=== PATIENT | female | born 1965 | race Caucasian/White ===

== ENCOUNTER 2024-08-18 04:58 | Observation (INO) | payer OTHER, SELFPAY ==
[2024-08-18] VITALS (27 sets, daily range): BP systolic 93–117; BP diastolic 55–73; PULSE 75–96; RESP 11–24; TEMP 36.2–36.6; O2SAT 82–98; BMI 21.4
--- NOTE | ~2024-08-18 | XR_ITS ---
XR chest 1V portable Ordering provider: Can Wild MD History: 59 years Female with . SHORTNESS OF BREATH X 2 DAYS. . Comparison: None. FINDINGS: MEDIASTINUM: The cardiac silhouette is not enlarged. LUNGS: No infiltrates, effusions or pneumothorax. OTHER: No free air under the diaphragm. IMPRESSION: No acute cardiopulmonary pathology. Reviewed, dictated and finalized at location A.
--- OUTSIDE RECORDS SUMMARY | 2024-08-18 05:00 | XMS_ITS | Clinical Summary ---
Author Organization [facility] Address [address] [place] [address] Care Team Providers Care Health Services Rn Name Role Phone Noe Hayes MD Primary Care Provider [phone] Allergies Active Allergy Reactions Criticality Noted Date Comments Cephalexin Rash Medium 10/02/2020 Penicillins Rash Medium 08/03/2018 Medications sertraline (ZOLOFT) 50 mg tablet Take 50 mg by mouth daily Active atorvastatin (LIPITOR) 20 mg tablet Take 20 mg by mouth daily Active cetirizine-pseud oephedrine ER (ZyrTEC-D) 5-120 mg per 12 hr tablet Take 1 tablet by mouth daily Active cyanocobalamin (Vitamin B-12) 500 mcg tabletIndication s:Prevention of Vitamin B12 Deficiency Take 500 mcg by mouth daily Active cholecalciferol, vitamin D3, (Vitamin D3) 1,000 unit tablet,chewable Take by mouth Active topiramate (TOPAMAX) 100 mg tablet Take 100 mg by mouth 2 (two) times a day Active rimegepant (Nurtec ODT) tablet,disintegr ating Take by mouth Active acetaminophen-as pirin-caffeine (EXCEDRIN MIGRAINE) 250-250-65 mg per tablet Take 1 tablet by mouth every 6 (six) hours as needed Active Active Problems Problem Noted Date Diagnosed Date Anxiety and depression 10/02/2020 Mixed hyperlipidemia 10/02/2020 S/P partial thyroidectomy 10/02/2020 Tobacco use disorder 10/02/2020 Tubular adenoma of colon 10/02/2020 Hyperthyroidism 08/03/2018 Surgical History Surgery Date Site/Laterality Comments THYROID LOBECTOMY Medical History Medical History Date Comments Tubular adenoma of colon 10/02/2020 Hyperthyroidism 08/03/2018 Mixed hyperlipidemia 10/02/2020 Anxiety and depression 10/02/2020 S/P partial thyroidectomy 10/02/2020 Tobacco use disorder 10/02/2020 Social History Tobacco Use Types Packs/Day Years Used Date Smoking Tobacco: Former Personal Safety Answer Date Recorded Getting School Help Needed Not on file 07/28 Comments Unknown Sex and Gender Information Value Date Recorded Sex Assigned at Not on file 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 Sex 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 Gender Identity Not on file Sexual Orientation Not on file Obstetrics History Last Filed Vital Signs Vital Sign Reading Time Taken Comments Blood Pressure 116/64 10/02/2020 12:01 PM CDT Pulse 96 10/02/2020 12:01 PM CDT Temperature 36.4 C (97.5 F) 10/02/2020 12:01 PM CDT Respiratory Rate - - Oxygen Saturation - - Inhaled Oxygen Concentration - - Weight 54 kg (119 lb) 10/02/2020 12:01 PM CDT Height 157.5 cm (5' 2 ) 10/02/2020 12:01 PM CDT Body Mass Index 21.77 10/02/2020 12:01 PM CDT Plan of Treatment Not on file Insurance COMMERCIAL GENERIC Care Teams Health Services Rn Relationship Specialty Start Date End Date Noe Hayes MD [address] [place] [address] [place] [address] PCP - General Family Medicine 08/26/20
--- OUTSIDE RECORDS SUMMARY | 2024-08-18 05:00 | XMS_ITS | Encounter Summary ---
Author Organization [facility] Address [address] [place] [address] Care Team Providers Care Retail Support Specialist Name Role Phone Noe Hayes MD Primary Care Provider [phone] Encounter Details Date Type Department Care Team (Late st Contact Info) Description 10/20/2018 Abstract SFL CONVERSION [address] [place] [address] , Generic Conversion, Social History Tobacco Use Types Packs/Day Years Used Date Smoking Tobacco: Every Day Cigarettes Smokeless Tobacco: Never Alcohol Use Standard Drinks/Week Comments No 0 (1 standard drink = 0.6 oz pur e alcohol) AUDIT-C Answer Date Recorded Frequency of Alcohol Consumption Never 08/03/2018 Average Number of Drinks Not on file 019 Frequency of Binge Drinking Not on file 07/14 Comments Unknown Sex and Gender Information Value Date Recorded Sex Assigned at Female 08/03/2018 12:35 PM CDT Legal Sex Female 10:21 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 Gender Identity Female 08/03/2018 12:35 PM CDT Sexual Orientation Not on file documented as of this encounter Plan of Treatment Not on file documented as of this encounter Visit Diagnoses Not on filedocumented in this encounter Additional Health Concerns Infection Onset Date Last Indicated Resolved Time COVID-19 Rule Out 01/01/2022 01/01/2022 01/01/2022 7:31 PM CDT documented as of this encounter Care Teams Retail Support Specialist Relationship Specialty Start Date End Date Noe Hayes MD [address] [place] [id number] PCP - General FAMILY PRACTICE 08/01/18 documented as of this encounter
--- OUTSIDE RECORDS SUMMARY | 2024-08-18 05:00 | XMS_ITS | Referral Summary ---
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
--- OUTSIDE RECORDS SUMMARY | 2024-08-18 05:00 | XMS_ITS | Clinical Summary ---
Author Organization [facility] Address Count includes the [facility] [place] [address] Care Team Providers Care Material Assembler Name Role Phone Noe Hayes MD Primary Care Provider [phone] Allergies Active Allergy Reactions Criticality Noted Date Comments Codeine Headache 08/03/2018 Nsaids Other (see comment) 08/03/2018 Hx of ulcer confirmed by bx. Penicillins Rash Medium 08/03/2018 Bupropion Hallucinations 08/03/2018 Medications sertraline 50 MG tablet Take 50 mg by mouth daily. Active lorazepam 1 MG tablet Take 0.5-1 tablets by mouth as needed. Active atorvastatin (LIPITOR) 20 MG tablet Take 20 mg by mouth nightly at bedtime. Active cetirizine (ZYRTEC) 5 MG tablet Take 5 mg by mouth as needed for Allergies. Active rimegepant (NURTEC) 75 MG disintegrating tablet Take 75 mg by mouth daily as needed for Migraine. Max of 3 tablets (75 mg) in a 24 hour period. Active Cyanocobalamin (B-12) 1000 MCG Cap Take 1,000 mcg by mouth daily. Active vitamin D3, cholecalciferol, 1000 UNIT Tab tablet Take 1 tablet by mouth daily. Active aspirin-acetaminoph en-caffeine (EXCEDRIN MIGRAINE) 250-250-65 MG tablet Take 1 tablet by mouth every 6 (six) hours as needed. Active Active Problems Problem Noted Date Diagnosed Date S/P excision of lipoma 08/17/2018 Encounter for postoperative care 08/17/2018 Hyperthyroidism 08/03/2018 Thyroid mass 08/03/2018 Overview (08/03/2018): Hx of partial thyroidectomy. Now with enlarging right thyroid. Referred to Dr. Garcia by PCP Insomnia, persistent 08/03/2018 Depression, endogenous ([facility]) 019 Overview (08/03/2018): She is not enjoying life and requests Sertraline, which her mother takes with good success. She denies suicidal ideation and refuses talk therapy per PCP Tobacco use disorder Elevated vitamin B12 level Acute loss of vision, right Tubular adenoma of colon Hand arthritis Anxiety state Esophageal reflux Mixed hyperlipidemia Thyroid nodule Benign positional vertigo, right Breast mass Anxiety and depression S/P partial thyroidectomy Resolved Problems Problem Noted Date Diagnosed Date Resolved Date Lipoma of right shoulder 08/06/201809/2018 Encounters Date Type Department Care Team Description 05/29/2024 2:15 PM SORTING GRAPPLE OPERATOR - 05/29/2024 11:59 PM SORTING GRAPPLE OPERATOR Hospital Encounter [facility] [address] [place] [address] Ameena Pena MD Discharge Disposition: Home or Self Care (Routine Discharge) 05/29/2024 Orders Only [facility] [address] [place] [address] Ameena Pena MD 05/29/2024 Orders Only [facility] [address] [place] [address] Ameena Pena MD 05/29/2024 Travel from Last 3 Months Family History Medical History Relation Comments Hypertension Father Colon Cancer Maternal Aunt Breast Cancer Maternal Grandmother Colon Cancer Maternal Uncle Breast Cancer Paternal Aunt Breast Cancer Paternal Grandmother Relation Status Comments Father Alive Maternal Aunt Maternal Grandmother Maternal Uncle Mother Alive Paternal Aunt Paternal Grandmother Social History Tobacco Use Types Packs/Day Years Used Date Smoking Tobacco: Former Cigarettes Smokeless Tobacco: Never Alcohol Use Standard Drinks/Week Comments No 0 (1 standard drink = 0.6 oz pur e alcohol) AUDIT-C Answer Date Recorded Frequency of Alcohol Consumption Never 08/03/2018 Average Number of Drinks Not on file 019 Frequency of Binge Drinking Not on file 07/14 Comments No Sex and Gender Information Value Date Recorded Sex Assigned at Female 08/03/2018 12:35 PM CDT Legal Sex Female 10:21 PM SORTING GRAPPLE OPERATOR Gender Identity Female 08/03/2018 12:35 PM CDT Sexual Orientation Not on file Last Filed Vital Signs Vital Sign Reading Time Taken Comments Blood Pressure 127/61 01/04/2022 12:53 PM CDT Pulse 59 01/04/2022 12:53 PM CDT Temperature 35.8 C (96.5 F) 01/04/2022 12:53 PM CDT Respiratory Rate 16 01/04/2022 12:53 PM CDT Oxygen Saturation 99% 01/04/2022 12:53 PM CDT Inhaled Oxygen Concentration - - Weight 49.9 kg (110 lb) 12/28/2021 10:41 AM CDT Height 157.5 cm (5' 2 ) 12/28/2021 10:41 AM CDT Body Mass Index 20.12 12/28/2021 10:41 AM CDT Plan of Treatment Health Maintenance Due Date Last Done Comments Annual Physical 1968 Pneumococcal Vaccine: Pediatrics (0 to 5 Years) and At-Risk Patients (6 to 64 Years) (1 of 2 - PCV) 1971 Hepatitis C 1983 DTaP, Tdap and Td Vaccines ( 1 - Tdap) 1984 Mammogram Screening 2005 Zoster Vaccines (2 of 2) 10/28/2021 09/02/2021 COVID-19 Vaccine (3 - 2023-2 5 season) 2024 12/02/2020, 11/11/2020 Influenza Adult (#1) 2024 03/12/2019 Colorectal Cancer Screening Colonoscopy (10 Years) 01/05/2032 01/04/2022, 01/04/2022 Meningococcal B Vaccine Aged Out No l onger eligible based on patient's age to complete this topic Meningococcal Vaccine Aged Out No tiffanie mary eligible based on patient's age to complete this topic RSV Immunizations Under 20 Months Aged Out No longer eligible b ased on patient's age to complete this topic Procedures Procedure Name Priority Date/Time Associated Diagnosis Comments [id number], TOTAL Routine 05/29/2024 2:37 PM SORTING GRAPPLE OPERATOR Emphysema lung (CMS/HCC HHS/HCC) SOB (shortness of breath) COLONOSCOPY 01/04/2022 6:50 AM CDT from Last 3 Months or Most Recently Relevant to Health Maintenance Results * [id number] TOTAL (05/29/2024 2:37 PM SORTING GRAPPLE OPERATOR) [id number] QUANT 180 83 - 199 mg/dL 06/03/2024 8:20 PM SORTING GRAPPLE OPERATOR [employer] MONIKA BRADLEY Comment: Test Performed by [email or web address], [place] [employer] [facility], [address] [place] [address] Cody Palacios M.D., Ph.D., Director of Laboratories , [facility] [id number] 05/29/2024 2:37 PM SORTING GRAPPLE OPERATOR Ameena Pena MD LABORATORY Final Result [employer] [facility] [address] [place] [address], [place] [phone] * Colonoscopy (01/04/2022 6:50 AM CDT) Samson Gambino MD GI PROCEDURE ORDERABLES Final Result from Last 3 Months or Most Recently Relevant to Health Maintenance Insurance GENERIC - COMMERCIAL Care Teams Material Assembler Relationship Specialty Start Date End Date Noe Hayes MD [address] [facility] [place] [address] PCP - General FAMILY PRACTICE 08/01/18
--- NOTE | 2024-08-18 05:08 | ED.SOB ---
HPI - SOB/Dyspnea General Chief Complaint: Shortness of Breath/Dyspnea Stated Complaint: dyspnea Time Seen by Provider: 08/18/24 05:08 Source: patient Mode of arrival: ambulatory Limitations: no limitations History of Present Illness HPI Narrative: 59-year-old female, smoker with a history of COPD, hypothyroidism status post thyroidectomy presents to the ED with 2 day history of -- cough with mucoid expectoration -- shortness of breath which is worse with exertion. patient 82% on room air on presentation. Subsequently the patient was placed on 2 L of O2. No fever or chills. No chest pain. No nausea/ vomiting /abdominal pain / diarrhea no upper respiratory tract symptoms. MD elicited complaint: shortness of breath and cough Pertinent past history: COPD Onset (ago): day(s) ( Two days) Context: occurred during exertion Timing: intermittent Severity: moderate Exacerbating factors: movement Relieving factors: rest Known history of: COPD Associated symptoms: cough Treatment prior to arrival: none Related Data Home oxygen amount: none Home Medications ?Medication ?Instructions ?Recorded ?Confirmed ?Last Taken ?Type rosuvastatin 40 mg tablet 40 mg PO DAILY 08/18/24 08/18/24 Unknown History sertraline 50 mg tablet 50 mg PO DAILY 08/18/24 08/18/24 Unknown History Allergies Allergy/AdvReac Type Severity Reaction Status Date / Time acetaminophen Allergy RASH Verified 08/18/24 05:25 iohexol (From contrast - CT, Allergy Rash Verified 08/18/24 05:25 X-RAY) Penicillins Allergy N/V Verified 08/18/24 05:25 prednisone Allergy SKIN Verified 08/18/24 05:25 IRRITATION HYDROCODONE BIT Allergy RASH Uncoded 05/24/13 06:45 Review of Systems Review of Systems: All systems reviewed & are unremarkable except as noted in HPI and below Constitutional: Constitutional: Reports as per HPI and Reports no additional constitutional complaints Eyes: Eyes: Reports as per HPI and Reports no additional eye complaints ENT: Reports system reviewed and no additional complaints, except as documented and Reports as per HPI Cardiovascular: Cardiovascular: Reports as per HPI and Reports no additional cardiovascular complaints Respiratory: Respiratory: Reports as per HPI, Reports no additional respiratory complaints, Reports cough and Reports dyspnea Gastrointestinal: Gastrointestinal: Reports as per HPI and Reports no additional gastrointestinal complaints Genitourinary: Genitourinary: Reports no additional female genitourinary complaints and Reports as per HPI Musculoskeletal: Musculoskeletal: Reports no additional musculoskeletal complaints and Reports as per HPI Integumentary/Breasts: Skin/Breast: Reports system reviewed and no additional complaints, except as docu and Reports as per HPI Neurologic: Reports system reviewed and no additional complaints, except as documented and Reports as per HPI Psychiatric: Psychiatric: Reports no additional psychiatric complaints and Reports as per HPI Endocrine: Endocrine: Reports no additional endocrine complaints and Reports as per HPI Hematologic/Lymphatic: Hematologic/Lymphatic: Reports no additional hematologic/lymphatic complaints and Reports as per HPI Allergic/Immunologic: Allergic/Immunologic: Reports no additional allergic/immunologic complaints and Reports as per HPI [facility] Past Medical History Medical History (Updated 08/18/24 @ 06:54 by Can Wild MD) COPD exacerbation Family History Family History (Updated 12/11/15 @ 23:19 by DOCTOR UNKNOWN) Sibling Malignant neoplasm of prostate Grandparent Family history of malignant neoplasm of breast Other Carcinoma of colon Social History Social History (Updated 08/18/24 @ 05:22 by Can Wild MD) Social History: ex-smoker Smoking status: Former smoker Second hand tobacco smoke exposure: No Alcohol intake: current Exam Narrative: afebrile. Oxygen saturation of 91% on 2 L of O2. Const: General: no acute distress Orientation/consciousness: patient oriented x3 Limitations: no limitations HENMT: Head: normal to inspection Ears: external ears normal Face/Nose/Sinus: Normal external nose present Face and sinus: normal facial exam Mouth: Yes Normal oral and palatal mucosa present Throat: posterior oropharynx normal Eyes: Conjunctivae: conjunctivae normal Pupils: Equal, round and reactive pupils present EOM: EOMs intact bilaterally Direct Ophthalmoscopy: no photophobia Neck: Neck: normal visual inspection, no lymphadenopathy and no meningeal signs Chest: Chest palpation & inspection: normal inspection of the chest Resp: Auscultation: wheezes and diminished lung sounds Cardio: Rate: regular rate Rhythm: regular rhythm GI: GI Palp: Yes Soft to palpation Auscultation: normal bowel sounds Other: No tenderness/ rigidity /rebound. : General: Yes no CVA tenderness Back/Spine/Pelvis: Back: no CVA tenderness Skin: General skin exam: normal color Rashes: no rashes Wounds: no wounds Neuro: General: patient oriented x3, moves all extremities, no meningeal signs, no focal motor deficits and CN's II-XI intact bilaterally Cranial nerves: Yes Nystagmus not present Speech: normal speech Extrem: General: normal to inspection and no clubbing, cyanosis or edema Psych: Mental Status: mental status grossly normal Affect: normal affect Attitude: cooperative Course Course Emergency Course: COPD exacerbation with acute hypoxic respiratory failure-- patient received IV Solu-Medrol and DuoNeb treatment. Chest x-ray did not show any acute findings. The patient had normal proBNP and D-dimer. Patient is hypoxic on room air with oxygen saturations ranging from 85-88%. The patient had an ABG on 3 L FiO2 which was noted to be 741/37/73/94%. Patient tested negative for RSV / influenza/. COVID. Will admit this patient. Transaminitis Vital Signs Vital signs: Vital Signs Temperature 36.6 C 08/18/24 05:05 Pulse Rate 87 08/18/24 05:05 Respiratory Rate 18 08/18/24 05:05 Blood Pressure 117/73 08/18/24 05:05 Pulse Oximetry 82 L 08/18/24 05:05 Oxygen Delivery Room Air 08/18/24 05:05 Temperature 36.6 C 08/18/24 05:05 Pulse Rate 82 08/18/24 06:19 Respiratory Rate 18 08/18/24 06:19 Blood Pressure 105/62 08/18/24 06:15 Pulse Oximetry 88 L 08/18/24 06:19 Oxygen Delivery Room Air 08/18/24 06:15 Oxygen Flow Rate 3 08/18/24 05:29 MDM - SOB/Dyspnea MDM Narrative Medical decision making narrative: COPD exacerbation acute hypoxic respiratory failure transaminitis Differential Diagnosis Differential diagnosis: Likely congestive heart failure and community acquired pneumonia Lab Data Attestation: I reviewed the patient's lab results. 08/18/24 05:11 08/18/24 05:11 Labs: Lab Results 08/18/24 Range/Units 05:11 WBC 11.2 H (4.8-10.8) K/mm3 RBC 4.92 (4.20-5.40) M/mm3 Hgb 14.5 (12.0-15.0) g/dL Hct 44.7 (35.0-49.0) % MCV 90.9 (78.0-102.0) fL MCH 29.5 (27.0-31.0) pg MCHC 32.4 (32-36) g/dL RDW 14.0 (11.6-14.4) % Plt Count 288 (150-420) K/mm3 MPV 9.2 (9.2-11.8) fl Immature Gran % (Auto) Not Reportable Neut % (Auto) Not Reportable Lymph % (Auto) Not Reportable [place] % (Auto) Not Reportable Eos % (Auto) Not Reportable Baso % (Auto) Not Reportable Lymph # (Auto) Not Reportable [place] # (Auto) Not Reportable Eos # (Auto) Not Reportable Baso # (Auto) Not Reportable Abs Immat Gran (auto) Not Reportable Absolute Neuts (auto) Not Reportable Absolute Nucleated RBC Not Reportable Band Neutrophils % Pending Nucleated RBC % Not Reportable Platelet Estimate Pending Schistocytes Pending D-Dimer 0.32 (0.19-0.50) mg/L Sodium 141 (136-145) mmol/L Potassium 3.9 (3.5-5.1) mmol/L Chloride 105 (98-108) mmol/L Carbon Dioxide 27 (21-32) mmol/L Anion Gap 9 (4-12) mmol/L BUN 20 H (7-18) mg/dL Creatinine 0.89 (0.55-1.02) mg/dL Estim Creat Clear Calc 49 ml/min Estimated GFR > 60 (59 - ) Glucose 115 H (70-99) mg/dL Calculated Osmolality 295 (285-295) mOsm/kg Lactic Acid 1.5 (0.4-2.0) mmol/L Calcium 9.2 (8.5-10.1) mg/dL Total Bilirubin 0.3 (0.00-1.00) mg/dL AST 49 H (15-37) U/L ALT 76 H (14-59) U/L Alkaline Phosphatase 110 (46-116) U/L Troponin I 7.7 (0.00-60.4) ng/L NT-Pro-B Natriuret Pep 116 (0-125) pg/mL Total Protein 7.7 (6.4-8.2) g/dL Albumin 3.9 (3.4-5.0) g/dL TSH 1.13 (0.36-3.74) uIU/mL Influenza A (RT-PCR) Negative (Negative) Influenza B (RT-PCR) Negative (Negative) RSV (RT-PCR) Negative (Negative) SARS-CoV-2 RNA (RT-PCR) Negative (Negative) ABG Data ABG results: 08/18/24 05:11 Puncture Site Right radial ABG pH 7.41 ABG pCO2 37.2 ABG pO2 72.8 L ABG HCO3 22.9 L ABG O2 Saturation 95.4 ABG Base Excess -1.3 L Oxyhemoglobin 93.8 L O2 Delivery Device Nasal cannula O2 Liters/Min 3.0 ECG Data EKG #1: ECG completion date: 08/18/24 ECG completion time: 05:33 Interpretation: sinus tachycardia. Normal axis. No ST elevation. Discharge Plan Discharge Clinical Impression: COPD exacerbation, Acute hypoxemic respiratory failure Patient Disposition: Acute Care Hospital Condition: Stable Instructions: Antibiotic Form Patient Language: Frisian Prescriptions: No Action sertraline 50 mg tablet 50 mg PO DAILY rosuvastatin 40 mg tablet 40 mg PO DAILY Follow-up/Referrals: Noe Hayes M.D. [Primary Care Provider] - Time of Disposition: 06:54
--- NOTE | 2024-08-18 05:11 | ECG_ITS ---
Test Date: 2024-08-18 05:33:52 Measurements Intervals [place] Rate: 77 P: 62 MA: 146 QRS: 24 QRSD: 102 T: 60 QT: 399 QTc: 454 Interpretive Statements SINUS RHYTHM INCOMPLETE RIGHT BUNDLE BRANCH BLOCK BASELINE ARTIFACT- I, II, III, AVR BORDERLINE ECG No previous ECG available for comparison Electronically Signed On 08-18-2024 07:45:16 CDT by Neeraj Jones D.O.
--- OUTSIDE RECORDS SUMMARY | 2024-08-18 05:27 | XMS_ITS | Encounter Summary ---
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 Gender Identity Female 08/03/2018 12:35 PM CDT Sexual Orientation Not on file documented as of this encounter Plan of Treatment Not on file documented as of this encounter Visit Diagnoses Not on filedocumented in this encounter Additional Health Concerns Infection Onset Date Last Indicated Resolved Time COVID-19 Rule Out 01/01/2022 01/01/2022 01/01/2022 7:31 PM CDT documented as of this encounter Care Teams Wall And Floor Tiler Relationship Specialty Start Date End Date Noe Hayes MD [address] [place] [id number] PCP - General FAMILY PRACTICE 08/01/18 documented as of this encounter
--- OUTSIDE RECORDS SUMMARY | 2024-08-18 05:28 | XMS_ITS | Referral Summary ---
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
--- OUTSIDE RECORDS SUMMARY | 2024-08-18 05:28 | XMS_ITS | Clinical Summary ---
Author Organization [facility] Address [facility] [place] [address] Care Team Providers Care Restaurant Management Internship Name Role Phone Noe Hayes MD Primary Care Provider Allergies Active Allergy Reactions Criticality Noted Date [...] by PCP Insomnia, persistent 08/03/2018 Depression, endogenous ([facility]HCC [facility]) 019 Overview (08/03/2018): She is not enjoying [...] Department Care Team Description 05/29/2024 2:15 PM WATER PLANT MAINTENANCE MECHANIC - 05/29/2024 11:59 PM WATER PLANT MAINTENANCE MECHANIC Hospital Encounter [facility] [address] [place] [id number] Ameena Pena MD Discharge Disposition: Home or Self Care (Routine Discharge) 05/29/2024 Orders Only [facility] [address] [place] [id number] Ameena Pena MD 05/29/2024 Orders Only [facility] [address] [id number] Ameena Pena MD 05/29/2024 Travel from Last [...] PM CDT Legal Sex Female 10:21 PM WATER PLANT MAINTENANCE MECHANIC Gender Identity Female 08/03/2018 12:35 PM CDT [...] Procedure Name Priority Date/Time Associated Diagnosis Comments [id number], TOTAL Routine 05/29/2024 2:37 PM WATER PLANT MAINTENANCE MECHANIC Emphysema lung (CMS/HCC HHS/HCC) SOB (shortness of breath) COLONOSCOPY 01/04/2022 6:50 AM CDT from Last 3 Months or Most Recently Relevant to Health Maintenance Results * [id number] TOTAL (05/29/2024 2:37 PM WATER PLANT MAINTENANCE MECHANIC) [id number] QUANT 180 83 - 199 mg/dL 06/03/2024 8:20 PM WATER PLANT MAINTENANCE MECHANIC [facility] Comment: Test Performed by [facility], [place] [facility], [address] [place] [address] Cody Palacios M.D., Ph.D., Director of Laboratories , [facility] [id number] 05/29/2024 2:37 PM WATER PLANT MAINTENANCE MECHANIC Ameena Pena MD LABORATORY Final Result [facility] [address] [place] [address], [place] [phone] * Colonoscopy (01/04/2022 6:50 AM CDT) Samson Gambino MD GI PROCEDURE ORDERABLES Final Result from Last 3 Months or Most Recently Relevant to Health Maintenance Insurance GENERIC - COMMERCIAL Care Teams Restaurant Management Internship Relationship Specialty Start Date End Date Noe Hayes MD [address] [place] [address] PCP - General FAMILY PRACTICE 08/01/18
--- OUTSIDE RECORDS SUMMARY | 2024-08-18 05:28 | XMS_ITS | Clinical Summary ---
Author Organization [facility] Address [address] [place] [address] Care Team Providers Care Refrigerating Engineer Name Role Phone Noe Hayes MD Primary Care Provider [phone] Allergies Active Allergy Reactions Criticality Noted Date [...] on file Legal Sex Female 12:49 PM MANAGER WEB APPLICATION Gender Identity Not on file Sexual Orientation [...] on file Insurance [employer]IC Care Teams Refrigerating Engineer Relationship Specialty Start Date End Date Noe Hayes MD [address] [place] [address] [place] [address] PCP - General Family Medicine 08/26/20
[2024-08-18 05:29] LABS: Hematocrit 44.7 % (35.0-49.0); Hemoglobin 14.5 g/dL (12.0-15.0); Mean Corpuscular HGB Conc 32.4 g/dL (32-36); Mean Corpuscular Hemoglobin 29.5 pg (27.0-31.0); Mean Corpuscular Volume 90.9 fL (78.0-102.0); Mean Platelet Volume 9.2 fl (9.2-11.8); Platelet Count Result 288 K/mm3 (150-420); Red Blood Count 4.92 M/mm3 (4.20-5.40); White Blood Count 11.2 K/mm3 (4.8-10.8)
[2024-08-18 05:36] LABS: D Dimer 0.32 mg/L (0.19-0.50)
[2024-08-18 05:45] LABS: Alanine Aminotransferase 76 U/L (14-59); Albumin Level 3.9 g/dL (3.4-5.0); Alkaline Phosphatase 110 U/L (46-116); Anion Gap 9 mmol/L (4-12); Aspartate Amino Transferase 49 U/L (15-37); Bilirubin,Total 0.3 mg/dL (0.00-1.00); Blood Urea Nitrogen 20 mg/dL (7-18); Calcium 9.2 mg/dL (8.5-10.1); Carbon Dioxide 27 mmol/L (21-32); Chloride 105 mmol/L (98-108); Estimated CRCL calculation 49 ml/min; Estimated Glomerular Filt Rate > 60; Glucose 115 mg/dL (70-99); NT Pro B Type Natriuretic Pept 116 pg/mL (0-125); Osmolality Calculated 295 mOsm/kg (285-295); Potassium 3.9 mmol/L (3.5-5.1); Sodium 141 mmol/L (136-145); Thyroid Stimulating Hormone 1.13 uIU/mL (0.36-3.74); Total Protein 7.7 g/dL (6.4-8.2); Troponin I 7.7 ng/L (0.00-60.4)
[2024-08-18 05:50] LABS: Base Excess ABG -1.3 mmol/L (0-2); HCO3 ABG 22.9 mmol/L (23-29); Oxygen Saturation ABG 95.4 % (95-97); Oxyhemoglobin 93.8 % (94-100); PCO2 ABG 37.2 mmHg (35-45); PO2 ABG 72.8 mmHg (80-90); pH ABG 7.41 (7.35-7.45)
[2024-08-18 05:51] LABS: Device NASAL CANNULA; Modified Allen's Test Pass; Site Drawn RIGHT RADIAL
[2024-08-18 05:53] LABS: Lactic Acid Reflex 1.5 mmol/L (0.4-2.0)
[2024-08-18] MEDS: IPRATROPIUM 0.5 MG/ALBUTEROL SULFATE 2.5 MG AMPUL.NEB 3 ML INHALATION ×4 (06:06→23:30)
[2024-08-18 06:07] LABS: Influenza A QL RT-PCR Negative (Negative); Influenza B QL RT-PCR Negative (Negative); RSV RNA, RT-PCR Negative (Negative); SARS-CoV-2 RNA PCR Negative (Negative)
--- NOTE | 2024-08-18 06:30 | PC.NURSE ---
Dr. Wild at bedside for update and plan of care.
[2024-08-18] MEDS: ALBUTEROL SULFATE NEB 2.5 MG/3 ML INH INHALATION (06:37)
[2024-08-18] MEDS: AZITHROMYCIN 500 MG/NS 250 ML 500 MG/250 ML BAG 250 MG IVPB (06:37)
[2024-08-18] MEDS: methylPREDNISolone SOD SUCC 125 MG VIAL IV PUSH (06:37)
[2024-08-18 08:33] LABS: Total Cells Counted 100
[2024-08-18 08:34] LABS: Atypical Lymphocytes Present; Band Neutrophils Percent 0 % (0-6); Basophils Absolute Manual 0.11 K/mm3 (0-0.1); Basophils Percent Manual 1 % (0-1); Eosinophils Absolute Manual 1.34 K/mm3 (0.02-0.50); Eosinophils Percent Manual 12 % (1-6); Lymphocytes Absolute Manual 3.92 K/mm3 (1.1-4.5); Lymphocytes Percent Manual 35 % (18-44); Monocytes Absolute Manual 0.56 K/mm3 (0.1-0.90); Monocytes Percent Manual 5 % (3-9); Neutrophils Absolute Manual 5.26 K/mm3 (1.7-7.2); Neutrophils Percent Manual 47 % (46-73); Platelet Estimate Adequate (Adequate); Schistocytes None Seen
--- NOTE | 2024-08-18 09:26 | P.HP_ITS ---
H&P: HPI History of Present Illness Date/Time: 08/18/24 09:26 Chief Complaint: shortness of breath/dyspnea Narrative: This is a 59-year-old female with a significant past medical history of COPD, emphysema, hyperlipidemia, migraine, former smoker who presented to the hospital with complaints of shortness of breath/dyspnea. She initially presented with acute respiratory failure with hypoxia and was started on 2 L nasal cannula while in the ED. Patient states she started feeling short of breath on Monday with worsening SOB yesterday and last night. She seen a social contact worker in [facility] recently and they did PFT's which shown the start of Emphysema. She was placed on Symbicort and has a rescue inhaler at home. She states that the Symbicort doesn't seem to help her at all. She also takes Zyrtec daily for seasonal allergies. She denies any fever, chills, nausea, vomiting, diarrhea, abdominal pain, chest pain or shortness of breath at the time of my examination. She is on 2L NC and does not appear to be in any acute respiratory distress. She denies any recent illnesses or sick contacts. Workup in the hospital included a chest x-ray which was negative for any cardiopulmonary pathology. Initial labs showed a white blood cell count of 11.2, eosinophils were elevated at 12%, D-dimer was normal at 0.32 , AST 49, ALT 76, troponin was normal at 7.7, TSH was normal at 1.13, proBNP was normal at 116, lactic acid was normal at 1.5. ABG showed a pH of 7.41, pCO2 37.2, PO2 72.8, bicarb 22.9 with a base excess of - 1.3. Respiratory panel was negative for influenza a and B, RSV, COVID. EKG showed sinus rhythm with right bundle branch block with a rate of 77, QTC 454. Patient was given 125 mg IV push Solu-Medrol, albuterol and DuoNeb breathing treatments, and started on azithromycin while in the ED. Review of Systems Review of Systems: All systems reviewed & are unremarkable except as noted in HPI and below [facility] Past Medical History Medical History (Updated 08/18/24 @ 11:04 by Olga Lidia Garcia, BERNIE) Depression Mass of thyroid gland delivery delivered Emphysema (subcutaneous) (surgical) resulting from a procedure COPD (chronic obstructive pulmonary disease) Former smoker Hyperlipidemia Migraine COPD exacerbation Surgical History Surgical History (Updated 08/18/24 @ 11:04 by Olga Lidia Garcia APRN) H/O partial thyroidectomy Status post left breast lumpectomy Hx of tonsillectomy Hx of cholecystectomy Family History Family History Sibling Malignant neoplasm of prostate Grandparent Family history of malignant neoplasm of breast Other Carcinoma of colon Social History Social History Social History: ex-smoker Smoking packs per day: 1 Smoking cigarettes per day: 20.0 Years smoked: 25 Smoking pack-years: 25.00 Smoking status: Former smoker Tobacco type: cigarettes Second hand tobacco smoke exposure: No Smoking end date: 08/16/13 Alcohol intake: current Drinks per week: 2 Substance use: never Substance use type: does not use Do You Feel Safe in your Home?: Yes Lack of Transportation: No Lack of Food: Never True Current Housing: I Have Housing Concerned About Future Housing: No Difficulty Paying Gas/Electric Bills: No Difficulty Paying for Meds: No Currently Unemployed: No Education: High School Diploma/GED Difficulty w/ Childcare or Family Care: No Spiritual care concerns: No Meds Home Medications and Allergies Home Medications ?Medication ?Instructions ?Recorded ?Confirmed ?Type rosuvastatin 40 mg tablet 40 mg PO DAILY 08/18/24 08/18/24 History sertraline 50 mg tablet 50 mg PO DAILY 08/18/24 08/18/24 History Allergies Allergy/AdvReac Type Severity Reaction Status Date / Time acetaminophen Allergy RASH Verified 08/18/24 05:25 iohexol (From contrast - CT, Allergy Rash Verified 08/18/24 05:25 X-RAY) Penicillins Allergy N/V Verified 08/18/24 05:25 prednisone Allergy SKIN Verified 08/18/24 05:25 IRRITATION HYDROCODONE BIT Allergy RASH Uncoded 05/24/13 06:45 Vital Signs Vital Signs - 24 hr 08/18/24 05:05 08/18/24 05:09 08/18/24 05:15 Temperature 97.9 F Pulse Rate 87 83 82 Respiratory Rate 18 11 L 14 Blood Pressure 117/73 Pulse Oximetry 82 L 90 88 L Oxygen Delivery Room Air Oxygen Flow Rate 08/18/24 05:28 08/18/24 05:29 08/18/24 05:30 Temperature Pulse Rate 76 81 Respiratory Rate 12 21 H Blood Pressure 107/61 Pulse Oximetry 94 95 93 Oxygen Delivery Nasal Cannula Nasal Cannula Oxygen Flow Rate 3 3 08/18/24 05:31 08/18/24 05:45 08/18/24 05:46 Temperature Pulse Rate 84 76 75 Respiratory Rate 22 H 19 20 Blood Pressure 107/66 100/72 Pulse Oximetry 93 93 93 Oxygen Delivery Oxygen Flow Rate 08/18/24 06:00 08/18/24 06:02 08/18/24 06:15 Temperature Pulse Rate 76 80 77 Respiratory Rate 24 H 14 Blood Pressure 110/61 105/62 Pulse Oximetry 92 95 92 Oxygen Delivery Room Air Oxygen Flow Rate 08/18/24 06:16 08/18/24 06:16 08/18/24 06:19 Temperature Pulse Rate 78 85 82 Respiratory Rate 18 Blood Pressure Pulse Oximetry 91 88 L Oxygen Delivery Oxygen Flow Rate 08/18/24 06:30 08/18/24 06:31 08/18/24 06:45 Temperature Pulse Rate 82 86 79 Respiratory Rate 18 Blood Pressure 93/60 L 97/55 L Pulse Oximetry 88 L 86 L 97 Oxygen Delivery Oxygen Flow Rate 08/18/24 06:46 08/18/24 07:00 08/18/24 07:01 Temperature Pulse Rate 80 90 91 Respiratory Rate Blood Pressure 103/61 Pulse Oximetry 98 90 90 Oxygen Delivery Oxygen Flow Rate 08/18/24 07:15 08/18/24 07:16 Temperature Pulse Rate 89 96 Respiratory Rate Blood Pressure 106/60 Pulse Oximetry 91 92 Oxygen Delivery Nasal Cannula Nasal Cannula Oxygen Flow Rate 2 2 Exam Narrative: General: In no acute distress, well nourished Head: atraumatic, no encephalopathy Eyes: PERRLA, sclera clear ENT: moist mucous membranes, nasal passages clear Neck: supple, no JVD, no adenopathy, trachea midline Cardiac: Normal S1 and S2. RRR, No murmur, gallops or friction rubs, peripheral pulses intact. Respiratory: Lungs clear to auscultation, no adventitious lung sounds, currently on 2L NC Gastrointestinal: soft, non-distended, non-tender, normoactive bowel sounds. : voiding without difficulty. Extremities: moves all extremities well, no edema Skin: clean, dry, intact. No wounds or lesions. Neuro: Alert and oriented x4, cranial nerves intact, no neuro deficits. Psych: normal mood, normal affect, interactive H&P: Results Labs Labs: Short CBC 08/18/24 Range/Units 05:11 WBC 11.2 H (4.8-10.8) K/mm3 Hgb 14.5 (12.0-15.0) g/dL Hct 44.7 (35.0-49.0) % Plt Count 288 (150-420) K/mm3 BMP 08/18/24 05:11 Sodium 141 Potassium 3.9 Chloride 105 Carbon Dioxide 27 BUN 20 H Creatinine 0.89 Glucose 115 H Calcium 9.2 Cardiac Enzymes 08/18/24 Range/Units 05:11 Troponin I 7.7 (0.00-60.4) ng/L Liver Function 08/18/24 Range/Units 05:11 Total Bilirubin 0.3 (0.00-1.00) mg/dL AST 49 H (15-37) U/L ALT 76 H (14-59) U/L Alkaline Phosphatase 110 (46-116) U/L Albumin 3.9 (3.4-5.0) g/dL Imaging Chest x-ray: Radiologist's impression: XR chest 1V portable Ordering provider: Can Wild MD History: 59 years Female with . SHORTNESS OF BREATH X 2 DAYS. . Comparison: None. FINDINGS: MEDIASTINUM: The cardiac silhouette is not enlarged. LUNGS: No infiltrates, effusions or pneumothorax. OTHER: No free air under the diaphragm. IMPRESSION: No acute cardiopulmonary pathology. Reviewed, dictated and finalized at location A. Assessment and Plan Assessment and plan (1) Acute hypoxemic respiratory failure: Code(s): J96.01 - Acute respiratory failure with hypoxia Status: Acute Assessment and Plan: * Sees Pulmonolgist in [facility] and was recently diagnosed with emphysema s/p PFTs. She was started on Albuterol rescue inhaler and Symbicort * chest x-ray was negative * continue azithromycin 500 mg daily x5 days * continue to wean O2 for sat greater than 92%, currently on 2 L nasal cannula * patient was given 125 mg IV push Solu-Medrol while in the ED * continue Solumedrol 40 mg IV BID * continue DuoNebs q.6 hours * absolute eosinophils 1.34, white blood cell count 11.2 * ABG shown a normal pH of 7.41, pCO2 37.2, PO2 72.8, bicarb 22.9, with a base excess of -1.3 * D-dimer was normal at 0.32, proBNP was normal at 116, troponin was normal at 7.7 * respiratory panel was obtained and was negative for influenza A and B, RSV, COVID * Patient normally takes Zyrtec daily at home, we will substitute with Claritin * Flonase ordered as well (2) COPD exacerbation: Code(s): J44.1 - Chronic obstructive pulmonary disease with (acute) exacerbation Status: Acute Assessment and Plan: see above plan of care (3) Former smoker: Code(s): Z87.891 - Personal history of nicotine dependence Status: Acute Assessment and Plan: * 1 pack per day smoker, quit in 1980 (4) Hyperlipidemia: Code(s): E78.5 - Hyperlipidemia, unspecified Status: Acute Assessment and Plan: * continue rosuvastatin (5) Depression: Code(s): F32.A - Depression, unspecified Status: Acute Assessment and Plan: * continue Zoloft Quality VTE Prophylaxis VTE prophylaxis: pharmacologic ordered Hospitalist [facility] Advance Care Plan I have confirmed that the patient's Advanced Care Plan is present, code status is documented, or surrogate decision maker is listed in patient medical record.: Yes Medication Reconciliation I have utilized all available resources to obtain, update and review the patients current medications (includes all prescriptions, OTC, herbals, cannabis, and nutritional supplements).: Yes
[2024-08-18] MEDS: ROSUVASTATIN 10 MG TABLET 40 MG PO ×2 (09:30→09:33)
[2024-08-18] MEDS: SERTRALINE HCL 50 MG TABLET PO (09:30)
--- NOTE | 2024-08-18 10:14 | PC.NURSE ---
Pt came to the floor at 0745 from ER. Pt is A/OX3, denies pain at present, O2 at 3L/NC, IV Azithromycin is infusing to RAC IV, Visiting hours reviewed with pt, nurse call system and bed controls reviewed with pt.
[2024-08-18 10:39] LABS: Thyroid Stimulating Hormone Reflex 0.48 u/IU/mL (0.36-3.74)
[2024-08-18] MEDS: methylPREDNISolone SOD SUCC 40 MG VIAL IV PUSH (17:41)
[2024-08-18] MEDS: BENZONATATE 100 MG CAPSULE 200 MG PO (23:29)
[2024-08-19] VITALS: BP 113/70; PULSE 87; RESP 17; TEMP 36.6; O2SAT 97
[2024-08-19 05:08] LABS: Basophils Absolute Auto 0.01 K/mm3 (0.00-0.10); Basophils Percent Auto 0.1 % (0.0-1.0); Eosinophils Absolute Auto 0.01 K/mm3 (0.02-0.50); Eosinophils Percent Auto 0.1 % (1.0-6.0); Hematocrit 39.5 % (35.0-49.0); Immature Granulocyte Absolute 0.08 K/mm3 (0.00-0.00); Immature Granulocyte Percent A 0.5 % (0.0-0.0); Lymphocytes Percent Auto 13.3 % (18.0-42.0); Mean Corpuscular HGB Conc 32.9 g/dL (32-36); Mean Corpuscular Hemoglobin 29.9 pg (27.0-31.0); Mean Corpuscular Volume 90.8 fL (78.0-102.0); Mean Platelet Volume 9.1 fl (9.2-11.8); Monocytes Percent Auto 5.3 % (2.0-11.0); Neutrophils Absolute Auto 12.11 K/mm3 (1.70-7.20); Neutrophils Percent Auto 80.7 % (50.0-70.0); Platelet Count Result 259 K/mm3 (150-420); Red Blood Count 4.35 M/mm3 (4.20-5.40)
[2024-08-19 05:23] LABS: Alanine Aminotransferase 52 U/L (14-59); Albumin Level 3.7 g/dL (3.4-5.0); Alkaline Phosphatase 103 U/L (46-116); Anion Gap 8 mmol/L (4-12); Aspartate Amino Transferase 23 U/L (15-37); Bilirubin,Total 0.3 mg/dL (0.00-1.00); Blood Urea Nitrogen 20 mg/dL (7-18); Calcium 8.8 mg/dL (8.5-10.1); Carbon Dioxide 28 mmol/L (21-32); Chloride 104 mmol/L (98-108); Estimated CRCL calculation 47 ml/min; Estimated Glomerular Filt Rate > 60; Glucose 151 mg/dL (70-99); Osmolality Calculated 295 mOsm/kg (285-295); Potassium 3.8 mmol/L (3.5-5.1); Sodium 140 mmol/L (136-145)
[2024-08-19] MEDS: IPRATROPIUM 0.5 MG/ALBUTEROL SULFATE 2.5 MG AMPUL.NEB 3 ML INHALATION (05:34)
[2024-08-19 05:35] VITALS: PULSE 88; RESP 16; O2SAT 91
[2024-08-19 05:45] VITALS: PULSE 89; RESP 16; O2SAT 99
[2024-08-19 08:00] VITALS: BP 113/70; PULSE 85; RESP 14; TEMP 37.1; O2SAT 95
[2024-08-19] MEDS: FLUTICASONE PROPIONATE 0.05% NA SPR 16 GM BTL (*BKC) 2 SPRAY NASAL (09:04)
[2024-08-19] MEDS: SERTRALINE HCL 50 MG TABLET PO (09:05)
[2024-08-19] MEDS: methylPREDNISolone SOD SUCC 40 MG VIAL IV PUSH (09:05)
[2024-08-19] MEDS: LORATADINE 10 MG TABLET PO (09:05)
[2024-08-19] MEDS: AZITHROMYCIN 250 MG TABLET 500 MG PO (09:05)
[2024-08-19] MEDS: ROSUVASTATIN 10 MG TABLET 40 MG PO (09:06)
--- NOTE | 2024-08-19 10:13 | P.DS_ITS ---
DS: Admitting Diagnosis Discharge Date 08/19/24 Admitting Diagnosis acute hypoxic respiratory failure COPD exacerbation former smoker hyperlipidemia depression DS: Discharge Diagnosis Discharge Diagnosis (1) Acute hypoxemic respiratory failure: Code(s): J96.01 - Acute respiratory failure with hypoxia Status: Acute (2) COPD exacerbation: Code(s): J44.1 - Chronic obstructive pulmonary disease with (acute) exacerbation Status: Acute (3) Former smoker: Code(s): Z87.891 - Personal history of nicotine dependence Status: Acute (4) Hyperlipidemia: Code(s): E78.5 - Hyperlipidemia, unspecified Status: Acute (5) Depression: Code(s): F32.A - Depression, unspecified Status: Acute DS: Summary Hospital Course Reason for hospitalization: acute hypoxic respiratory failure COPD exacerbation former smoker hyperlipidemia depression Hospital Course: This is a 59-year-old female with a significant past medical history of COPD, emphysema, hyperlipidemia, migraine, former smoker who presented to the hospital with complaints of shortness of breath/dyspnea. She initially presented with acute respiratory failure with hypoxia and was started on 2 L nasal cannula while in the ED. Patient states she started feeling short of breath on Monday with worsening SOB yesterday and last night. She seen a research associate molecular biology in [facility] recently and they did PFT's which shown the start of Emphysema. She was placed on Symbicort and has a rescue inhaler at home. She states that the Symbicort doesn't seem to help her at all. She also takes Zyrtec daily for seasonal allergies. She denies any fever, chills, nausea, vomiting, diarrhea, abdominal pain, chest pain or shortness of breath at the time of my examination. She is on 2L NC and does not appear to be in any acute respiratory distress. She denies any recent illnesses or sick contacts. Workup in the hospital included a chest x-ray which was negative for any cardiopulmonary pathology. Initial labs showed a white blood cell count of 11.2, eosinophils were elevated at 12%, D-dimer was normal at 0.32 , AST 49, ALT 76, troponin was normal at 7.7, TSH was normal at 1.13, proBNP was normal at 116, lactic acid was normal at 1.5. ABG showed a pH of 7.41, pCO2 37.2, PO2 72.8, bicarb 22.9 with a base excess of -1.3 . Respiratory panel was negative for influenza a and B, RSV, COVID. EKG showed sinus rhythm with right bundle branch block with a rate of 77, QTC 454. Patient was given 125 mg IV push Solu-Medrol, albuterol and DuoNeb breathing treatments, and started on azithromycin while in the ED. patient was weaned off oxygen overnight and states she is feeling much better today. Her vital signs are stable, she is afebrile, she is currently on room air. She is stable for discharge at this time. We will go ahead and change her Symbicort to Advair and I provided a nebulizer with DuoNeb treatments as needed for shortness of breath/wheezing. She was also given a Medrol Dosepak, azithromycin, Flonase, Tessalon Perles for her COPD exacerbation. She is to follow up with her research associate molecular biology in the next 2 weeks. final diagnosis: acute hypoxic respiratory failure, COPD exacerbation Status at Discharge Cognitive/behavioral status at discharge: alert oriented x4 Functional status at discharge: independent ambulation Overall status at discharge: patient is progressing back to baseline Time Spent with Patient Time attestation: Total time spent providing and/or coordinating discharge services: Time spent: Greater than 30 minutes Exam Narrative: General: In no acute distress, well nourished Cardiac: Normal S1 and S2. RRR, No murmur, gallops or friction rubs, peripheral pulses intact. Respiratory: Lungs clear to auscultation, no adventitious lung sounds, currently on room air Gastrointestinal: soft, non-distended, non-tender, normoactive bowel sounds. : voiding without difficulty. Neuro: Alert and oriented x4 DS: Data Data Completed and Pending Completed studies during hospitalization: chest x-ray Pending studies at discharge: none Labs on day of discharge: Labs from last 24 hours 08/19/24 08/18/24 05:03 10:04 WBC 15.0 H RBC 4.35 Hgb 13.0 Hct 39.5 MCV 90.8 MCH 29.9 MCHC 32.9 RDW 14.0 Plt Count 259 MPV 9.1 L Immature Gran % (Auto) 0.5 H Neut % (Auto) 80.7 H Lymph % (Auto) 13.3 L [place] % (Auto) 5.3 Eos % (Auto) 0.1 L Baso % (Auto) 0.1 Lymph # (Auto) 2.00 [place] # (Auto) 0.80 Eos # (Auto) 0.01 L Baso # (Auto) 0.01 Abs Immat Gran (auto) 0.08 H Absolute Neuts (auto) 12.11 H Absolute Nucleated RBC 0.00 Nucleated RBC % 0.0 Sodium 140 Potassium 3.8 Chloride 104 Carbon Dioxide 28 Anion Gap 8 BUN 20 H Creatinine 0.89 Estim Creat Clear Calc 47 Estimated GFR > 60 Glucose 151 H Calculated Osmolality 295 Calcium 8.8 Total Bilirubin 0.3 AST 23 ALT 52 Alkaline Phosphatase 103 Total Protein 7.0 Albumin 3.7 TSH (Reflex) 0.48 Procedures/Treatments: none Discharge Plan Discharge Attending physician on discharge: Ochoa Torres Discharging Clinician: Olga Lidia Garcia Anticipated Discharge Date/Time: 08/19/24 10:00 Patient Disposition: Home Activity: as tolerated Diet: as tolerated and regular Discharge Instructions: * finish all of your antibiotic as directed even if your feeling better * finish your Medrol Dosepak, steroid * you have been prescribed Advair to use twice daily in place of your Symbicort. stop taking the Symbicort. * use your albuterol rescue inhaler as needed * if you continue to have shortness a breath or wheezing you can give yourself a nebulized breathing treatment * urine noted to have an absolute eosinophil count of 1.34 initially. talk with your physical medicine specialist about this. Your eosinophil count is down to normal range today. * follow-up with your research associate molecular biology in 2 weeks * continue taking your Zyrtec daily, I added Flonase as well for allergy related exacerbations * follow-up with your primary care doctor as needed. Patient Instructions: Antibiotic Form, Azithromycin (By mouth), Methylprednisolone (By mouth), Ipratropium/Albuterol (By breathing), Fluticasone/Salmeterol (By breathing), Emphysema (DC), How to Use a Nebulizer (DC), Chronic Lung Disease and Infection Prevention (DC) Patient Language: Monegasque Stand Alone Forms: General Discharge Information Follow-up/Referrals: Noe Hayes M.D. [Primary Care Provider] - 1 week Discharge Medications: New (DME) nebulizer and compressor Device See Rx Instructions .Route Qty: 1 0RF Rx Instructions: As directed (DME) nebulizer accessories Kit See Rx Instructions .Route Qty: 1 0RF Rx Instructions: As directed fluticasone propionate 50 mcg/actuation [place],Suspension 2 spray intranasal QAM Qty: 1 0RF azithromycin [Zithromax] 250 mg Tablet 500 mg PO DAILY Qty: 6 0RF benzonatate 100 mg Capsule 200 mg PO TID PRN (Reason: coughing) Qty: 30 0RF fluticasone propion-salmeterol [Advair Diskus] 250-50 mcg/dose blister with device 1 inh inhalation Q12H Qty: 60 0RF methylprednisolone 4 mg tablets,dose pack See Rx Instructions .ROUTE .COMPLEX Qty: 21 0RF Rx Instructions: orally per package directions ipratropium-albuterol 0.5 mg-3 mg(2.5 mg base)/3 mL Solution For Nebulization 3 ml inhalation Q6HRT PRN (Reason: sob/wheezing) Qty: 30 0RF Continued sertraline 50 mg tablet 50 mg PO DAILY rosuvastatin 40 mg tablet 40 mg PO DAILY Date of admission: 08/18/24 06:55 Primary Care Provider: Noe Hayes Admitting Provider: Ochoa Torres Attending physician on admission: Olga Lidia Garcia Condition: Improved Quality VTE Prophylaxis VTE prophylaxis: pharmacologic ordered Hospitalist [facility]IPS Heart Failure (Exclusion) Patient has history of Heart Transplant or Left Ventricular Assistive Device?: No IF YES, STOP HERE Heart Failure (Qualifier) Patient has current or prior documentation of LVEF less than or equal to 40%, or mod/servere depressed LVSF?: No IF NO, STOP HERE
--- NOTE | 2024-08-19 11:07 | PC.NURSE ---
Pt discharged to home with spouse. pt and spouse given discharge instructions regarding new medications: Tesalon pearls, Advair diskus, Azithromycin and nebulizer treatments prn. Both pt and spouse verbalize understanding of instructions. Pt VSS, Respirations unlabored and pulse OX is 95 %. Pt taken to family car via WC by RN.
== END 2024-08-19 10:50 | disposition home or self-care (01) ==
LOC: CHSED 06:54 → CHS2ND 07:04
PROVIDERS: Admitting Provider Internal Medicine; Emergency Provider Internal Medicine Critical Care Medicine; PCP Family Medicine; Visit Provider Nurse Practitioner Acute Care
DX: J96.01 Acute respiratory failure with hypoxia (principal); J44.1 Chronic obstructive pulmonary disease with (acute) exacerbation; J43.9 Emphysema, unspecified; J30.2 Other seasonal allergic rhinitis; E89.0 Postprocedural hypothyroidism; E78.5 Hyperlipidemia, unspecified; G43.909 Migraine, unspecified, not intractable, without status migrainosus; F32.A Depression, unspecified; Z87.891 Personal history of nicotine dependence; Z20.822 Contact with and (suspected) exposure to COVID-19; Z79.51 Long term (current) use of inhaled steroids; Z79.899 Other long term (current) drug therapy; Z88.0 Allergy status to penicillin; Z88.8 Allergy status to other drugs, medicaments and biological substances
CPT/HCPCS: 36415; 36600; 71045; 80053; 82805; 83605; 83880; 84443; 84484; 85025; 85380; 87637; 93005; 94640; 96374; 96376; 99285; A9270; G0378; J0456; J2919